=== PATIENT | male | born 1930 | race Caucasian/White ===

== ENCOUNTER 2016-05-20 16:28 | Emergency (ER) | payer MEDICARE, OTHER ==
[~2016-05-20] VITALS: Ht 188 cm; Wt 105.0 kg
[~2016-05-20 16:28] MED LIST: ALLO100; HYDR-3533 PO; METHO500 PO; MOBI7.5T PO; TAMS0.4C67 PO
[2016-05-20 16:30] VITALS: BP 138/80; PULSE 75; RESP 18; TEMP 98.2; O2SAT 95
[2016-05-20] MEDS ORDERED: CLINDAMYCIN INJ 600 MG in SODIUM CHLORIDE 0.9% INJ 100 ML IV ONE (21:30)
[2016-05-20] MEDS ORDERED: LIDOCAINE 1%/EPINEPHrine 1:100,000 SOLN 20 ML VIAL INFIL ONE (21:30)
[2016-05-20] MEDS ORDERED: BACT800T5 PO (21:45)
[2016-05-20] MEDS ORDERED: CLIN1CAP5 PO (21:45)
--- NOTE | 2016-05-20 21:53 | PD ---
HPI Chief Complaint: Skin Problem Time Seen by Provider: 21:46 Travel History International Travel<30 days: No Contact w/Intl Traveler<30days: No Traveled to known affect area: No History of Present Illness HPI 86-year-old male that presents to the ED for evaluation of abscess to his left hand. Per patient she's had this for the past 4-5 days. Per patient is started on last week. Per patient is presently getting worse. Per patient he even himself trying to drain it with minimal relief. Per patient he came here today because the swelling doesn't seem to be improving but what actually concerning the most was that no he has some redness going into his wrist. He denies any history of MRSA right be drug abuse. He denies taking any immunosuppressants. No history of diabetes. Patient denies any actual injury to cause this. 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 He states that his pain rhinitis 5 out of 10. He has been taking OTC meds with minimal relief. He has not seen anybody for this. He states that he has had his tetanus shot within the past 5 years. [facility] Social History Alcohol Use: Yes Tobacco Use: No Substance Use: No Allergies-Medications (Allergen,Severity, Reaction): Coded Allergies: Penicillin (Verified Allergy, Severe, RASH, 06/25/14) Reported Meds & Prescriptions Reported Meds & Active Scripts Active Bactrim DS (Sulfamethoxazole-Trimethoprim) 800-160 Mg Tab 1 Tab PO BID 10 Days Clindamycin (Clindamycin HCl) 150 Mg Cap 300 Mg PO Q6H 10 Days Mobic (Meloxicam) 7.5 Mg Tab 7.5 Mg PO DAILY PRN 10 Days Robaxin 500 Mg Tab (Methocarbamol) 500 Mg Tab 500 Mg PO TID PRN Lortab 5 mg/325 mg (Hydrocodone/Acetaminophen 5 mg/325 mg) 1 Tab 0.5-1 Tab PO Q6H PRN Reported Flomax (Tamsulosin HCl) 0.4 Mg Cap 0.4 Mg PO HS Zyloprim (Allopurinol) 100 Mg Tab 300 Mg NOON UNKNOWN DOSE Review of Systems General / Constitutional: No: Fever, Chills, Weight Gain, Weight Loss, Other Eyes: No: Diploplia, Blurred Vision, Photophobia, Drainage, Redness, Foreign Body Sensation, Pain, Tearing, Blind Spots, Visual changes, Blindness, Other HENT: No: Headaches, Vertigo, Lightheadedness, Sore Throat, Rhinitis, Rhinorrhea, Congestion, Nosebleed, Neck Stiffness, Neck Pain, Masses, Gingival Bleeding, Dental Difficulties, Ear Discharge, Earache, Other Cardiovascular: No: Chest Pain or Discomfort, Palpitations, Irregular Rhythm, Tachycardia, Diaphoresis, Syncope, Dyspnea on exertion, Varicosities, Edema, Cyanosis, Varicosities, Phlebitis, Claudication, Other Respiratory: No: Cough, Shortness of Breath, Wheezing, Sneezing, Orthopnea, Hemoptysis, Stridor, Night Sweats, Pleuritic Pain, Other Gastrointestinal: No: Nausea, Vomiting, Diarrhea, Abdominal Pain, Hematemesis, Hematochezia, Constipation, Changes in Bowel Habits, Indigestion, Dysphagia, Loss of Appetite, Other Genitourinary: No: Urgency, Frequency, Dysuria, Nocturia, Hematuria, Decreased Urinary Output, Oliguria, Hesitancy, Dribbling, Incontinence, Pelvic Pain, Flank Pain, Dyspareunia, Discharge, Dysmenorrhea, Menorrhagia, Metorrhagia, Vaginal Bleeding, Other Musculoskeletal: No: Myalgias, Arthralgias, Limited ROM, Weakness, Cramping, Edema, Pain, Atrophy, Other Skin: Positive Rash, Positive Lesions, No Itching, No Dryness, No Lumps, No Hives, No Change in Pigmentation, No Change in nails, No Alopecia, No Breast Lumps, No Breast Tenderness, No Breast Swelling, No Other Neurologic: No: Weakness, Dizziness, Syncope, Focal Abnormalities, Coordination Problem, Tremor, Ataxia, Headache, Change in Mentation, Slurred Speech, Paresthesia, Incontinence, Seizures, Sensory Disturbance, Other Psychiatric: No: Anxiety, Depression, Suicidal Ideations, Disorder of Thought, Mood Disorder, Substance Abuse, Homicidal Ideation, Other Endocrine: No: Heat Intolerance, Cold Intolerance, Polyuria, Polydipsia, Other Hematologic/Lymphatic: No: Easy Bruising, Lymph Node Enlargement, Other Physical Exam Narrative GENERAL: SKIN: Warm and dry. HEAD: Atraumatic. Normocephalic. EYES: Pupils equal and round. No scleral icterus. No injection or drainage. ENT: No nasal bleeding or discharge. Mucous membranes pink and moist. Tongue is midline. No uvula deviation. NECK: Trachea midline. No JVD. CARDIOVASCULAR: Regular rate and rhythm. No murmurs, S3, S4. RESPIRATORY: No accessory muscle use. Clear to auscultation. Breath sounds equal bilaterally. GASTROINTESTINAL: Abdomen soft, non-tender, nondistended. Hepatic and splenic margins not palpable. MUSCULOSKELETAL: Extremities without clubbing, cyanosis, or edema. No obvious deformities. Full range of motion of all fingers with exception of the left fifth and fourth digits for which she has a chronic contracture. Patient does have an area of purulence which is about 1 cm in diameter on the lateral aspect of the left hand. Patient has an area of erythema about 2-3 cm in diameter from the purulence area. Some of it appears to be streaking towards the wrist. Slightly warm but not painful. Neurovascular intact. Good capillary refill in all fingers. NEUROLOGICAL: Awake and alert. No obvious cranial nerve deficits. Motor grossly within normal limits. Five out of 5 muscle strength in the arms and legs. Normal speech. PSYCHIATRIC: Appropriate mood and affect; insight and judgment normal. Data Data Last Documented VS Vital Signs Date Time Temp Pulse Resp B/P Pulse Ox O2 Delivery O2 Flow Rate FiO2 05/20/16 16:30 98.2 75 18 138/80 95 Room Air Orders Wound Culture And Gram Stain (05/20/16 21:29) Iv Access Insert/Monitor (05/20/16 21:29) Wound Care (05/20/16 21:29) Clindamycin Inj (Cleocin Inj) (05/20/16 21:30) Lidocai-Epi 1%-1:100,000 Inj (Xylocaine- (05/20/16 21:30) MDM Medical Decision Making Medical Screen Exam Complete: Yes Emergency Medical Condition: Yes Medical Record Reviewed: Yes Differential Diagnosis Cellulitis versus abscess versus wound infection Narrative Course 86-year-old male that presents to the ED for evaluation of left hand infection. Patient was properly examined and was found to have signs and symptoms consistent with a superficial abscess with cellulitis. Patient has no signs of sepsis. His physical exam is reassuring. No lymphadenopathy noted. At this time I recommend incision and drainage of the abscess and started him on IV clindamycin as well as prescription for clindamycin and Bactrim. Patient is agreeable with this plan. After explained procedure to the patient and he agreed to it laceration was repaired as stated in procedure note. Cultures were taken. Packing was placed. Patient was told to get packing removed in 48 hours. Recheck in 48 hours see worsening symptoms or not improvement. He agrees and understands. See ED for any worsening symptoms. Warm compresses. Wound care was endorsed. All questions were answered to the best of my ability. Procedures Procedure Narrative After the risks and benefits were discussed the following procedure was performed: INCISION AND DRAINAGE OF ABSCESS: The area was prepped and was sterilely draped. A subcutaneous wheal of 1 % Xylocaine with a total number 5 mL was used to anesthetize the area. The area was properly anesthetized. A number 11 scalpel was used to make a 1 -cm incision across the area of the abscess. Cultures were obtained. The abscess was drained an irrigated with normal saline. Quarter inch iodoform packing was placed in the wound. Sterile dressing applied. Patient advised to have packing removed in two days. Diagnosis Primary Impression: Cellulitis and abscess of hand Patient Instructions: General Instructions Additional Instructions: Change dressings daily. Only wash with soap and water. Preferably antibacterial soap but do not wash inside the wound. Packing needs to be removed in 48 hours. Recheck in 6-year-old hours if no improvement or worsening symptoms of infection. If he starts to develop fevers, worsening pain , worsening redness even with taking antibiotics see ED immediately. Otherwise take medications as prescribed and follow with her doctor. See ED for any worsening symptoms. Apply warm compresses or ice to the area. Motrin or Tylenol for pain as needed. Med/Other Pt SpecificInfo: Prescription(s) given, Wound Care Scripts Sulfamethoxazole-Trimethoprim (Bactrim DS)800-160 Mg Tab1 Tab PO BID 10 Days Prov:Betsy Mattson MD 05/20/16 Clindamycin 150 Mg [id number] Mg PO Q6H 10 Days Prov:Betsy Mattson MD 05/20/16 Disposition: 01 DISCHARGE HOME Condition: Stable Jack Sams May 20, 2016 21:53
[2016-05-20 22:49] VITALS: BP 157/85; PULSE 58; RESP 18; TEMP 98; O2SAT 97
[2016-05-20] MEDS ORDERED: TAMS0.4C4 PO (22:54)
[2016-05-20] MEDS ORDERED: ALLO300T2 PO (22:54)
== END 2016-05-20 23:30 | disposition home or self-care (01) ==
LOC: NEPE 16:28
DX: L02.512 Cutaneous abscess of left hand (principal); B95.61 Methicillin susceptible Staphylococcus aureus infection as the cause of diseases classified elsewhere
CPT/HCPCS: 10061; 86403; 87070; 87186; 87205; 96374